=== PATIENT | male | born 1965 | race Caucasian/White ===

== ENCOUNTER 2021-02-15 05:31 | Outpatient (CLI) | payer BC, SELFPAY ==
[2021-02-15] VITALS (8 sets, daily range): BP systolic 116–156; BP diastolic 73–93; PULSE 91–104; RESP 17–20; TEMP 36.6–37.6; O2SAT 96–97
== END 2021-02-15 05:32 | disposition home or self-care (01) ==
LOC: INF 05:31
PROVIDERS: PCP Family Medicine; Visit Provider Family Medicine
DX: U07.1 COVID-19 (principal)
CPT/HCPCS: 96365